=== PATIENT | female | born 1990 | race Caucasian/White ===

== ENCOUNTER 2020-06-22 19:06 | Outpatient (REF) | payer MEDICAID, SELFPAY ==
[2020-06-25 14:09] LABS: COVID-19 RT-PCR UVMMC Result Negative (Negative)
== END 2020-06-22 19:26 ==
LOC: LBN 19:06
PROVIDERS: PCP Family Medicine; Visit Provider Nurse Practitioner Adult Health
DX: Z11.52 Encounter for screening for COVID-19 (principal)
CPT/HCPCS: U0003